=== PATIENT | female | born 1985 | race Caucasian/White ===

== ENCOUNTER 2017-02-27 22:40 | Outpatient (CLI) | payer MEDICAID, OTHER ==
[~2017-02-27] VITALS: Ht 152.4 cm; Wt 69.3 kg
[2017-02-27 23:11] VITALS: Ht 152.4 cm; Wt 69.3 kg
[2017-02-27 23:13] VITALS: BP 122/74; PULSE 92; RESP 18
[2017-02-27] MEDS ORDERED: PREN-93 PO (23:17)
[2017-02-27] MEDS ORDERED: IRON1TAB78 PO (23:17)
[2017-02-27] MEDS ORDERED: FERR256T PO (23:17)
[2017-02-27] MEDS: LACTATED RINGER'S 1,000 ML IV* PRN (23:50)
--- NOTE | 2017-02-28 00:14 | RADRPT ---
PROCEDURE: OB ultrasound for biophysical profile CLINICAL INDICATION: labor.. TECHNIQUE: Multiple sonographic images of the gravid uterus performed. The images were reviewed on a PACS workstation. COMPARISON: None FINDINGS: A single live intrauterine is identified with heart rate of 166 bpm. Fet us is in a cephalic presentation. Placenta is located anterior. Biophysical profile: breathing movement = 2/2 tone = 2/2 motion = 2/2 TEJ = 2/2 TEJ = 11.35 cm. IMPRESSION: 1. Single live intrauterine gestation. 2. Biophysical profile = 8/8. 3. TEJ = 11.35 cm. RPTAT: HMVK .Jt Qureshi MD, Date Time Electronically viewed and signed by .Jt Qureshi MD, on 02/28/2017 00:14 .K/
[2017-02-28] MEDS ORDERED: FAMOTIDINE 20 MG INJ IV ONE (01:00)
[2017-02-28] MEDS ORDERED: AL HYDROX/MG HYDROX/SIMETH 30 ML CUP PO ONE (01:00)
[2017-02-28 01:25] LABS: BASOPHIL # 0.1 10^3/ul (0.0-0.1); BASOPHILS % 0.3 % (0.0-2.0); EOSINOPHILS # 0.1 10^3/ul (0.0-0.5); EOSINOPHILS % 0.3 % (0.0-7.0); HEMATOCRIT 39.4 % (37.0-47.0); HEMOGLOBIN 13.8 g/dl (12.0-16.0); LYMPHOCYTES # 1.1 10^3/ul (0.8-2.9); LYMPHOCYTES % 5.9 % (15.0-51.0); MEAN CORPUSCULAR HEMOGLOBIN 30.3 pg (29.0-33.0); MEAN CORPUSCULAR VOLUME 86.4 fl (82.0-101.0); MEAN PLATELET VOLUME 11.7 fl (7.4-10.4); MONOCYTE # 0.9 10^3/ul (0.3-0.9); MONOCYTES % 5.1 % (0.0-11.0); NEUTROPHIL # 16.3 10^3/ul (1.6-7.5); NEUTROPHILS % 87.5 % (39.0-77.0); PLATELET COUNT 178 10^3/UL (140-415); RED BLOOD COUNT 4.56 10^6/ul (4.20-5.40); RED CELL DISTRIBUTION WIDTH 13.6 % (11.5-14.5); WHITE BLOOD COUNT 18.6 10^3/ul (4.8-10.8)
[2017-02-28 01:43] LABS: ALBUMIN 3.9 g/dl (3.3-4.9); ALBUMIN/GLOBULIN RATIO 1.05; BILIRUBIN,INDIRECT 0.6 mg/dl (0-1.1); BILIRUBIN,TOTAL 0.6 mg/dl (0.2-1.3); CALCIUM 9.4 mg/dl (8.4-10.2); CREATININE 0.51 mg/dl (0.44-1.00); POTASSIUM 3.4 mmol/L (3.5-5.1); TOTAL PROTEIN 7.6 g/dl (6.1-8.1)
[2017-02-28] MEDS: LACTATED RINGER'S 1,000 ML IV* PRN (01:44)
[2017-02-28 01:45] LABS: AMYLASE 69 U/L (11-123)
--- NOTE | 2017-02-28 01:53 | RADRPT ---
PROCEDURE: US Abdomen (right upper quadrant). CLINICAL INDICATION: Pain. TECHNIQUE: Multiple real-time longitudinal and transverse images of the right upper quadrant of th e abdomen were acquired utilizing a curved array transducer. Images were reviewed on a high-resoluti on PACS workstation. COMPARISON: None FINDINGS: The liver is normal in size and echogencity. There is no focal intrahepatic mass.. The gallbladder is normal. There is no pericholecystic fluid or gallbladder wall thickening or gallstones. No intr a or extrahepatic biliary dilatation is seen. The common bile duct measures 3.6 mm in maximal dimen ezequiel. The visualized portions of the pancreas are unremarkable with obscuration of the posterior miguel dy and tail of the pancreas. No free fluid is identified. Visualized abdominal aorta and IVC are un remarkable. The right kidney measures 11.4 cm in length. Renal cortical echogenicity is within normal limits.. There is no perinephric fluid collection. No hydronephrosis, mass, or calculus is seen. IMPRESSION: Posterior body and tail of pancreas obscured by bowel gas. Otherwise negative. RPTAT: HMVK .Jt Qureshi MD, MD Date Time Electronically viewed and signed by .Jt Qureshi MD, MD on 02/28/2017 01:52 .K/
[2017-02-28] MEDS ORDERED: TERBUTALINE 1 MG/ML INJ SC PRN (02:30)
[2017-02-28] MEDS ORDERED: ACETAMINOPHEN 500 MG TAB PO ONE (03:00)
[2017-02-28 04:11] LABS: ADD UMIC YES; UR AMORPHOUS CRYSTAL MANY /HPF (NONE SEEN); UR ASCORBIC ACID NEGATIVE (NEGATIVE); UR BACTERIA FEW /HPF (NONE SEEN); UR BILIRUBIN (Dip) NEGATIVE (NEGATIVE); UR BLOOD (Dip) NEGATIVE (NEGATIVE); UR CLARITY TURBID (CLEAR); UR COLOR AMBER (YELLOW); UR GLUCOSE (Dip) NEGATIVE (NEGATIVE); UR KETONES (Dip) TRACE mg/dL (NEGATIVE); UR LEUKOCYTE ESTERASE (Dip) NEGATIVE Leu/ul (NEGATIVE); UR MUCUS FEW /HPF (NONE SEEN); UR NITRITE (Dip) NEGATIVE (NEGATIVE); UR RBC 0 /HPF (0-5); UR SPECIFIC GRAVITY (Dip) 1.015 (1.003-1.030); UR SQUAMOUS EPITHELIAL CELL MODERATE /HPF (FEW); UR TOTAL PROTEIN (Dip) NEGATIVE (NEGATIVE); UR UROBILINOGEN (Dip) NEGATIVE (NEGATIVE)
--- NOTE | 2017-02-28 06:10 | TRIAGE ---
OB Triage Datetime Report Generated by CPN: 02/28/2017 06:09 Datetime: 02/28/2017 05:02 Stage of : OB Triage Labor Evaluation Frequency: 5-9 Monitor Mode: External Duration (sec)2399: 30-60 Quality: Mild Pattern: Normal: <= 5 Contractions in 10 Minutes Resting Tone [place]: Relaxed Heart Rate FHR Baseline Rate: 155 Monitor Mode: External US FHR Baseline Changes: No Baseline Change Variability: Moderate 6-25 bpm Accelerations: 15X15 Decelerations: None Category: Category I Pain Assessment Pain Scale: 3 Pain Presence: Intermittent Pain Type: Cramping Pain Location: Abdomen Datetime: 02/28/2017 04:09 Stage of : OB Triage Labor Evaluation Frequency: 2-4 Monitor Mode: External Quality: Mild Pattern: Normal: <= 5 Contractions in 10 Minutes Resting Tone [place]: Relaxed Heart Rate FHR Baseline Rate: 155 Monitor Mode: External US Variability: Moderate 6-25 bpm Accelerations: 15X15 Category: Category I Pain Assessment Comments: Pt resting w/ eyes closed Datetime: 02/28/2017 03:38 Stage of : OB Triage Monitor Mode: External Quality: Mild Pattern: Normal: <= 5 Contractions in 10 Minutes Resting Tone [place]: Relaxed Monitor Mode: External US Comments: 200 Pain Assessment Pain Scale: 8 Pain Presence: Intermittent Pain Type: Contraction Pain Location: Abdomen Datetime: 02/28/2017 03:28 Pain Assessment Comments: PT. STILL STATES SHE IS UNCOMFORTABLE WITH UC PAIN Datetime: 02/28/2017 03:00 Labor Evaluation Frequency: 2-4 Monitor Mode: External Duration (sec)2399: 40-70 Pattern: Normal: <= 5 Contractions in 10 Minutes Heart Rate FHR Baseline Rate: 155 Monitor Mode: External US FHR Baseline Changes: No Baseline Change Variability: Moderate 6-25 bpm Datetime: 02/28/2017 02:00 Labor Evaluation Frequency: 2-5 Monitor Mode: External Duration (sec)2399: 50-70 Pattern: Normal: <= 5 Contractions in 10 Minutes Heart Rate FHR Baseline Rate: 155 Monitor Mode: External US FHR Baseline Changes: No Baseline Change Variability: Moderate 6-25 bpm Accelerations: 15X15 Datetime: 02/28/2017 01:57 Pain Assessment Comments: PT. RESTING ON SIDE WITH EYES CLOSED Vaginal Exam Dilatation (cms): 0.5 Effacement (%): 40 Station: -3 Exam By: GSTRATTON Vaginal Bleeding: None Cervix, Consistency: Soft Cervix, Position: Posterior Presentation 'A': Cephalic Datetime: 02/28/2017 01:00 Labor Evaluation Frequency: 3-5 Monitor Mode: External Duration (sec)2399: 70-100 Pattern: Normal: <= 5 Contractions in 10 Minutes Heart Rate FHR Baseline Rate: 155 FHR Baseline Changes: No Baseline Change Variability: Moderate 6-25 bpm Accelerations: 15X15 Datetime: 02/28/2017 00:00 Labor Evaluation Frequency: 5 Monitor Mode: External Duration (sec)2399: 60-80 Pattern: Normal: <= 5 Contractions in 10 Minutes Heart Rate FHR Baseline Rate: 150 Monitor Mode: External US FHR Baseline Changes: No Baseline Change Variability: Moderate 6-25 bpm Accelerations: 15X15 Datetime: 02/27/2017 23:08 Time of Arrival: 02/27/2017 22:33 EGA: 35.3 Arrived By: Wheelchair Arrived From: Home Chief Complaint: N/V X4 AND UC'S SINCE 20:00 Movement: Present Contractions: Regular Time Contractions Began: 02/27/2017 20:00 Contractions: 5-7 Rupture of Membranes: Denies Vaginal Bleeding: None Vaginal Discharge: Denies Recent Sexual Intercouse: Denies Abdominal Trauma: Not Applicable Patient Complaints: Contractions; Nausea; Vomiting Additional Patient Complaints: DENIES Time Provider Notified: 02/27/2017 23:21 Provider Notified: Dr Diallo Initial Plan: EFM, SVE, CALL OB Datetime: 02/27/2017 23:06 Vaginal Exam Dilatation (cms): 0.5 Effacement (%): 0 Station: -3 Exam By: Sylvia KILPATRICK RN Vaginal Bleeding: None Cervix, Consistency: Firm Cervix, Position: Posterior Datetime: 02/27/2017 22:40 Stage of : OB Triage Maternal Assessment Level of Consciousness: Fully Conscious Headache: Denies Blurred Vision: No Respiratory Effort: Unlabored; Regular Rhythm; Equal Expansion Nausea/Vomiting: Denies RUQ Epigastric Pain: Denies Facial Edema: None Temperature Route: Axillary Fall Risk Assessment History of Falling: (0) No Secondary Diagnosis: (0) No Ambulatory Aid: (0) Bedrest/Nurse Assist Gait: (0) Normal/Bedrest/Immobile Mental Status: (0) Oriented to Own Ability
--- NOTE | 2017-02-28 06:47 | PN ---
Triage Information Date/Time February 28, 2017 Reason for visit: Epigastric pain, nausea, vomiting Weeks of Gestation 35 weeks and 3 days /Para Diabetes: none Hypertention: none Additional information 31-year-old female with IUP at 35 weeks and 3 days presented with complaint of epigastric pain, contractions and nausea and vomiting starting today. She denies any leaking of fluid, vaginal bleeding or decreased movement or any other complaints. Objective Vital Signs Date Time Temp Pulse Resp B/P Pulse Ox O2 Delivery O2 Flow Rate FiO2 02/27/17 23:13 98.4 92 18 122/74 Room Air Intake and Output 02/27/17 02/27/17 02/28/17 15:00 23:00 07:00 Intake Total 2000 ml Balance 2000 ml Heart Rate: 130's Exam General appearance: Alert and oriented 4. patient appears to be in moderate distress due to epigastric pain abdomen: Soft, gravid, there is mild tenderness in the, negative Velasquez sign epigastric area. No rebound tenderness, no guarding, no rigidity NST: Category 1 irregular contractions in the month toward noted Hematology - 72 Hrs Test 02/27/17 23:45 White Blood Count 18.610^3/ul (4.8-10.8) H Red Blood Count 4.5610^6/ul (4.20-5.40) Hemoglobin 13.8g/dl (12.0-16.0) Hematocrit 39.4% (37.0-47.0) Mean Corpuscular Volume 86.4fl (82.0-101.0) Mean Corpuscular Hemoglobin 30.3pg (29.0-33.0) Mean Corpuscular Hemoglobin Concent 35.0g/dl (32.0-37.0) Red Cell Distribution Width 13.6% (11.5-14.5) Platelet Count 79158^3/UL (140-415) Mean Platelet Volume 11.7fl (7.4-10.4) H Neutrophils % 87.5% (39.0-77.0) H Lymphocytes % 5.9% (15.0-51.0) L Monocytes % 5.1% (0.0-11.0) Eosinophils % 0.3% (0.0-7.0) Basophils % 0.3% (0.0-2.0) Nucleated Red Blood Cells % 0.0/100WBC (0.0-0.0) Neutrophils # 16.310^3/ul (1.6-7.5) H Lymphocytes # 1.110^3/ul (0.8-2.9) Monocytes # 0.910^3/ul (0.3-0.9) Eosinophils # 0.110^3/ul (0.0-0.5) Basophils # 0.110^3/ul (0.0-0.1) Nucleated Red Blood Cells # 0.010^3/ul (0.0-0.0) Chemistry Test 02/27/17 23:45 Sodium Level 140mmol/L (135-144) Potassium Level 3.4mmol/L (3.5-5.1) L Chloride Level 104mmol/L (97-110) Carbon Dioxide Level 25mmol/L (21-31) Anion Gap 14 (8-16) Blood Urea Nitrogen 7mg/dl (7-20) Creatinine 0.51mg/dl (0.44-1.00) Glucose Level 63mg/dl (70-220) L Calcium Level 9.4mg/dl (8.4-10.2) Total Bilirubin 0.6mg/dl (0.2-1.3) Direct Bilirubin 0.00mg/dl (0.00-0.20) Indirect Bilirubin 0.6mg/dl (0-1.1) Aspartate Amino Transf (AST/SGOT) 34IU/L (15-46) Alanine Aminotransferase (ALT/SGPT) 27IU/L (13-69) Alkaline Phosphatase 248IU/L (42-121) H Total Protein 7.6g/dl (6.1-8.1) Albumin 3.9g/dl (3.3-4.9) Globulin 3.70g/dl (1.3-3.2) H Albumin/Globulin Ratio 1.05 Amylase Level 69U/L (11-123) Lipase 145U/L (23-300) Results/Medications Result Diagram: 02/27/17 8770 02/27/17 3035 Results 24 hrs Laboratory Tests Test 02/27/17 22:40 02/27/17 23:45 Urine Color KARIN Urine Clarity TURBID A Urine pH 9.0 Urine Specific [place] 1.015 Urine Ketones TRACE A Urine Nitrite NEGATIVE Urine Bilirubin NEGATIVE Urine Urobilinogen NEGATIVE Urine Leukocyte Esterase NEGATIVE Urine Microscopic RBC 0 Urine Microscopic WBC 0 Urine Squamous Epithelial Cells MODERATE Urine Amorphous Crystals MANY A Urine Bacteria FEW A Urine Mucus FEW A Urine Hemoglobin NEGATIVE Urine Glucose NEGATIVE Urine Total Protein NEGATIVE White Blood Count 18.6 H Red Blood Count 4.56 Hemoglobin 13.8 Hematocrit 39.4 Mean Corpuscular Volume 86.4 Mean Corpuscular Hemoglobin 30.3 Mean Corpuscular Hemoglobin Concent 35.0 Red Cell Distribution Width 13.6 Platelet Count 178 Mean Platelet Volume 11.7 H Neutrophils % 87.5 H Lymphocytes % 5.9 L Monocytes % 5.1 Eosinophils % 0.3 Basophils % 0.3 Nucleated Red Blood Cells % 0.0 Neutrophils # 16.3 H Lymphocytes # 1.1 Monocytes # 0.9 Eosinophils # 0.1 Basophils # 0.1 Nucleated Red Blood Cells # 0.0 Sodium Level 140 Potassium Level 3.4 L Chloride Level 104 Carbon Dioxide Level 25 Anion Gap 14 Blood Urea Nitrogen 7 Creatinine 0.51 Glucose Level 63 L Calcium Level 9.4 Total Bilirubin 0.6 Direct Bilirubin 0.00 Indirect Bilirubin 0.6 Aspartate Amino Transf (AST/SGOT) 34 Alanine Aminotransferase (ALT/SGPT) 27 Alkaline Phosphatase 248 H Total Protein 7.6 Albumin 3.9 Globulin 3.70 H Albumin/Globulin Ratio 1.05 Amylase Level 69 Lipase 145 Imaging Results PROCEDURE: US Abdomen (right upper quadrant). CLINICAL INDICATION: Pain. TECHNIQUE: Multiple real-time longitudinal and transverse images of the right upper quadrant of the abdomen were acquired utilizing a curved array transducer. Images were reviewed on a high-resolution PACS workstation. COMPARISON: None FINDINGS: The liver is normal in size and echogencity. There is no focal intrahepatic mass.. The gallbladder is normal. There is no pericholecystic fluid or gallbladder wall thickening or gallstones. No intra or extrahepatic biliary dilatation is seen. The common bile duct measures 3.6 mm in maximal dimension. The visualized portions of the pancreas are unremarkable with obscuration of the posterior body and tail of the pancreas. No free fluid is identified. Visualized abdominal aorta and IVC are unremarkable. The right kidney measures 11.4 cm in length. Renal cortical echogenicity is within normal limits.. There is no perinephric fluid collection. No hydronephrosis, mass, or calculus is seen. IMPRESSION: Posterior body and tail of pancreas obscured by bowel gas. Otherwise negative. Disposition: Assessment/Plan IUP at 35 weeks and 3 days Epigastric pain, nausea vomiting and contractions Ultrasound of abdomen unremarkable. No evidence of cholecystitis Labs all unremarkable nausea and vomiting likely related to contractions. Patient has false labor pain. Cervical exam did not show any change in symptoms improved after she received a dose of terbutaline as well as Pepcid Likely epigastric pain as a result of vomiting. She was advised to go to emergency room for evaluation after clearance from OB point of view Declined. Strict labor precaution and kick counts and follow-up with primary OB within 24 hours discussed the patient Patient verbalized understanding Return to triage. Recurrence of the contractions, leaking of fluid, vaginal bleeding or for any other concerns KIRTI WELCH MD Feb 28, 2017 06:47
== END 2017-02-28 05:16 | disposition home or self-care (01) ==
LOC: OBT 22:40 → L-D 22:42 → OBT 02-28 05:16
PROVIDERS: ATTEND Obstetrics & Gynecology
DX: O26.893 Other specified pregnancy related conditions, third trimester (principal); R10.13 Epigastric pain; O21.0 Mild hyperemesis gravidarum; Z3A.35 35 weeks gestation of pregnancy
CPT/HCPCS: 36415; 76705; 76818; 80053; 81001; 82150; 83690; 85025; 96360; 96361; 96372; 96375; J3105; Z7500; Z7610; G0463

== ENCOUNTER 2017-03-23 18:32 | Outpatient (CLI) | END 2017-03-24 00:08 | disposition home or self-care (01) ==

== ENCOUNTER 2017-04-02 09:25 | Inpatient (IN) | END 2017-04-06 14:25 | disposition home or self-care (01) | DRG 766 ==